=== PATIENT | male | born 1945 | race Caucasian/White ===

== ENCOUNTER 2016-11-04 11:30 | Inpatient (IN) ==
[2016-11-04 11:37] LABS: MANUAL DIFF NEEDED? NO; URINE MICRO REVIEW NEEDED? NO; URINE SOURCE CLEAN CATCH
[2016-11-04 11:57] LABS: BASO% 0.3 % (0.0-0.8); EOS# 0.18 X1000 (0.0-0.7); EOS% 2.7 % (0.0-10.0); HEMATOCRIT 43.7 % (42.0-52.0); LYMPH# 1.76 X1000 (1.2-3.4); MCH 32.1 PG (27-31); MCHC 34.3 g/dL (33-37); MCV 93.6 FL (81-99); MONO# 0.52 X1000 (0.11-0.59); MONO% 7.7 % (1.7-9.3); MPV 9.9 FL (7.4-10.4); NEUT% 63.3 % (42.2-75.2); PLT 112 X1000 (130-400); RBC 4.67 XMIL (4.7-6.1)
[2016-11-04 12:06] LABS: INR 1.08; PROTIME 11.4 Seconds (9.2-11.7); PTT 28.9 Seconds (22.0-36.0)
[2016-11-04 12:23] LABS: BILIRUBIN URINE NEGATIVE (NEGATIVE); BLOOD URINE NEGATIVE (NEGATIVE); COLOR YELLOW; GLUCOSE URINE NEGATIVE (NEGATIVE); LEUKOCYTES URINE NEGATIVE (NEGATIVE); NITRITE URINE NEGATIVE (NEGATIVE); PH URINE 6.5; PROTEIN URINE NEGATIVE (NEGATIVE); SP GRAVITY URINE 1.022; TURBIDITY URINE CLEAR (CLEAR); UROBILINOGEN URINE 4 mg/dL (NORMAL)
[2016-11-04 12:24] LABS: UR EPITHELIAL CELLS <10 /HPF (<10); URINE BACTERIA NEGATIVE /HPF; URINE RBC <10 /HPF (<10); URINE WBC <10 /HPF (<10)
[2016-11-04 13:01] LABS: AGAP 12; BUN 11 mg/dL (8-22); CALCIUM 9.2 mg/dL (8.8-10.2); CHLORIDE 101 mmol/L (98-107); COSMO 280; POTASSIUM 4.2 mmol/L (3.5-5.1); SODIUM 140 mmol/L (136-145); TCO2 27 mmol/L (25-35)
--- NOTE | 2016-11-04 13:55 | EKG Report ---
Test Performed on : 11/04/2016 11:17:09 AM Test Reason : PAT Blood Pressure : / mmHG Vent. Rate : 083 BPM Atrial Rate : 083 BPM P-R Int : 204 ms QRS Dur : 074 ms QT Int : 408 ms P-R-T Axes : 050 -04 059 degrees QTc Int : 479 ms Sinus rhythm. with premature supraventricular complexes. Otherwise normal ECG When compared with ECG of 08-MAY-2014 10:35, premature supraventricular complexes. are now present Confirmed by Alec Zepeda DO ([id number]) on 11/07/2016 8:00:35 PM
[2016-11-11] MEDS ORDERED: KEFZOL 2 GM/D5W 2 GM/50 ML IVPB ONE (06:46)
[2016-11-11] MEDS ORDERED: LR 1,000 ML ONE (06:46)
[2016-11-11] MEDS ORDERED: PEPCID ONE (06:46)
[2016-11-11] MEDS ORDERED: REGLAN ONE (06:46)
[2016-11-11] MEDS ORDERED: FENTANYL ONE (06:55)
[2016-11-11] MEDS ORDERED: XYLOCAINE-MPF 2% ONE (06:55)
[2016-11-11] MEDS ORDERED: DIPRIVAN 1% ONE (06:55)
[2016-11-11] MEDS ORDERED: COLACE ONE (06:59)
[2016-11-11] MEDS ORDERED: LYRICA ONE (06:59)
[2016-11-11] MEDS ORDERED: QUELICIN (DOSE) ONE (07:00)
[2016-11-11] MEDS ORDERED: STERILE WATER INJ. ONE (07:02)
[2016-11-11] MEDS ORDERED: NORCURON ONE (07:02)
[2016-11-11] MEDS ORDERED: VERSED ONE ×2 (07:42→08:14)
[2016-11-11] MEDS ORDERED: NAROPIN 0.5% ONE (07:42)
[2016-11-11] MEDS ORDERED: SENSORCAINE 0.5%-EPI 1:200,000 ONE (07:44)
[2016-11-11] MEDS ORDERED: TORADOL ONE (07:44)
[2016-11-11] MEDS ORDERED: DURAMORPH ONE (07:44)
[2016-11-11] MEDS ORDERED: NEOSPORIN G.U. IRRIGANT ONE (07:45)
[2016-11-11] MEDS ORDERED: CYKLOKAPRON 1,000 MG/NS 1,000 MG/100 ML IVPB ONE (07:45)
[2016-11-11] MEDS ORDERED: SODIUM CHLORIDE 0.9% ONE (07:45)
[2016-11-11] MEDS ORDERED: EXPAREL 1.3% ONE (07:45)
[2016-11-11 09:39] LABS: URINE MICRO REVIEW NEEDED? NO; URINE SOURCE CATH
[2016-11-11 09:50] LABS: BILIRUBIN URINE NEGATIVE (NEGATIVE); BLOOD URINE NEGATIVE (NEGATIVE); COLOR YELLOW; GLUCOSE URINE NEGATIVE (NEGATIVE); LEUKOCYTES URINE NEGATIVE (NEGATIVE); NITRITE URINE NEGATIVE (NEGATIVE); PH URINE 5.5; PROTEIN URINE NEGATIVE (NEGATIVE); SP GRAVITY URINE 1.026; TURBIDITY URINE CLEAR (CLEAR); UROBILINOGEN URINE 2 mg/dL (NORMAL)
[2016-11-11 09:51] LABS: UR EPITHELIAL CELLS <10 /HPF (<10); URINE BACTERIA NEGATIVE /HPF; URINE RBC <10 /HPF (<10); URINE WBC <10 /HPF (<10)
[2016-11-11] MEDS ORDERED: OFIRMEV 1000 MG/ISOTONIC SOLN 1,000 MG/100 ML BOTTLE ONE (10:08)
--- NOTE | 2016-11-11 11:30 | OPERATIVE NOTE ---
PROCEDURE DATE: 11/11/2016 PREOPERATIVE DIAGNOSIS: Left degenerative glenohumeral arthritis with chronic rotator cuff tear. POSTOPERATIVE DIAGNOSIS: Left degenerative glenohumeral arthritis with chronic rotator cuff tear. PROCEDURE: Left reverse shoulder arthroplasty with DePuy Delta XTEND size 14 press-fit stem, a 42, +3 humeral cup, 42 Eccentric Glenosphere, and a standard Metaglene. SURGEON: Jovan Man MD. PARTS RUNNER: LINA Garrido. SECOND PRINTED CIRCUIT BOARD PREASSEMBLER: Rico Gayle RN. ANESTHESIA: General. IV FLUIDS: 1500 mL lactated Ringer's. ESTIMATED BLOOD LOSS: 100 mL. COMPLICATIONS: None. INDICATION: The patient is a pleasant, 71-year-old male with a chronic history of worsening pain and discomfort of his left shoulder. Continued pain and discomfort despite appropriate nonoperative treatment. X-rays and MRI findings revealed left degenerative glenohumeral arthritis with a chronic rotator cuff tear. Recommendation to proceed with left reverse shoulder arthroplasty was offered. The risks and benefits of surgery were explained including the risks of anesthesia, , bleeding, infection, failure to relieve pain, postoperative stiffness, nerve injury, blood clots, and other imponderables. All questions were answered. The patient and family wished to proceed with surgery. DETAILS OF OPERATION: The patient was taken to the operating room and placed supine on the operating table. Once adequate anesthesia was obtained, the patient was placed in a semi-[place] beach-chair position. The left shoulder was subsequently prepped and draped in the usual sterile fashion. A standard deltopectoral incision was made with a skin knife. Medial and lateral skin envelopes were developed. Hemostasis was obtained using electrocautery. The clavipectoral fascia was then elevated and Samuel retractor was placed. The clavipectoral fascia was then elevated as well as the conjoint tendon. Attention was turned to the subscapularis tendon where a stay suture was placed. Approximately 1 cm medial to its insertion, release of the subscapularis tendon was then performed. The head was then dislocated anteriorly. A starting reamer was then passed superiorly. The starting reamer was then passed. Sequential reaming was then conducted to a size 14. Intramedullary guide was then placed in position. The humeral head was then resected. A protective disk was then placed. Attention was then turned to the glenoid. Circumferential dissection was then performed. A guide was then placed with the guide pin placed in the glenoid. Reaming was then conducted. The central hole was then dilated. The wound was copiously irrigated with antibiotic pulsatile lavage. A standard Metaglene was then impacted in position. Two locking screws were then placed and two nonlocking screws. It had good purchase. The wound was copiously irrigated once again. This was followed by a 42 Eccentric Glenosphere with the eccentricity placed inferiorly. Attention was then turned to the proximal humerus where an intramedullary guide was placed in position. The proximal humerus was then reamed. Copious irrigation was then performed with antibiotic pulsatile lavage. A size 14 Delta XTEND press-fit stem was then impacted in position with some autologous bone graft. It had good fit. Trial cup was then placed. A 42, +3 cup had excellent stability and range of motion. The trial cup was removed. The wound was copiously irrigated once again. This was followed by a 42, +3 humeral cup impacted on the stem. The shoulder was reduced, carried through a range of motion, and had good range of motion. It was carried through range of motion once again. Exparel was placed in the deep soft tissue. The wound was copiously irrigated. Then #2 FiberWire was used to repair the subscapularis tendon. It appeared to have good repair. This was followed by Exparel that was then placed in the subcutaneous tissue, followed by 2-0 Vicryl, and a running 2-0 Prolene. Benzoin and Steri-Strips were applied. Adaptic, sterile 4 x 4s, ABD pad, and tape were applied to the left shoulder, followed by a shoulder immobilizer. All counts were correct. Patient tolerated the procedure well and was transferred to the recovery room in stable condition. cc: Jovan Man MD
--- NOTE | 2016-11-11 11:44 | Diag Imaging Result Doc PS360 ---
EXAM: SHOULDER 1 VIEW LEFT HISTORY: L TSA TECHNIQUE: AP portable upright left shoulder one view COMMENT: There is an apparent shoulder prosthesis. This is only one view. There is no definite evidence of fracture or other acute abnormality. IMPRESSION: Postsurgical change. Electronically signed by Ang Kamara 11/11/2016 11:42 AM
[2016-11-11] MEDS ORDERED: ZOFRAN IV PRN (14:15)
[2016-11-11] MEDS ORDERED: ZOFRAN PO PRN (14:15)
[2016-11-11] MEDS ORDERED: OXY IR PO PRN (14:15)
[2016-11-11] MEDS ORDERED: MILK OF MAGNESIA PO PRN (14:15)
[2016-11-11] MEDS ORDERED: MORPHINE IV PRN (14:15)
[2016-11-11] MEDS ORDERED: CYKLOKAPRON 1,000 MG in NS 100 ML IV ONE (15:00)
[2016-11-11] MEDS: KEFZOL 1 GM/D5W 1 GM/50 ML IVPB IV SCH (17:49)
[2016-11-11] MEDS: TYLENOL PO SCH ×2 (17:49→21:21)
[2016-11-11] MEDS ORDERED: NORCO-10 PO PRN (20:38)
[2016-11-11] MEDS: COLACE PO SCH (21:22)
[2016-11-12] MEDS: KEFZOL 1 GM/D5W 1 GM/50 ML IVPB IV SCH (00:27)
[2016-11-12] MEDS: TYLENOL PO SCH ×2 (00:27→05:39)
[2016-11-12] MEDS: NS 1,000 ML IV SCH ×2 (00:28→05:39)
[2016-11-12 06:52] LABS: HEMATOCRIT 34.6 % (42.0-52.0); HEMOGLOBIN 11.7 g/dL (14.0-18.0)
[2016-11-12 07:11] LABS: AGAP 11; BUN 15 mg/dL (8-22); CALCIUM 8.2 mg/dL (8.8-10.2); CHLORIDE 103 mmol/L (98-107); COSMO 276; POTASSIUM 4.3 mmol/L (3.5-5.1); SODIUM 137 mmol/L (136-145); TCO2 23 mmol/L (25-35)
--- NOTE | 2016-11-12 07:37 | PROGRESS NOTE ---
DATE: 11/12/2016 SUBJECTIVE: The patient is a pleasant 71-year-old male who is 1 day status post left reverse total shoulder arthroplasty. He is currently resting comfortably and has no complaints. PHYSICAL EXAMINATION: Patient's left upper extremity dressing is intact. His hemoglobin is 11.7, hematocrit 34.6. IMPRESSION: Postop day #1 status post left reverse total shoulder arthroplasty. PLAN: At this point, we will change his dressing, Hep-Lock his IV and discontinue his Daivs. We will plan on discharging home. Patient will proceed with outpatient physical therapy. cc: Jovan Man MD
[2016-11-12 08:53] VITALS: BP 107/62
[2016-11-12] MEDS ORDERED: PERIDEX MT SCH (09:00)
[2016-11-12] MEDS ORDERED: PEPCID PO SCH (09:00)
[2016-11-12] MEDS: COLACE PO SCH (09:02)
== END 2016-11-12 10:37 | disposition home or self-care (01) ==
LOC: SURHOLD 11-11 02:43 → 4N 11-11 12:30
PROVIDERS: ADMIT Orthopaedic Surgery Adult Reconstructive Orthopaedic Surgery; ATTEND Orthopaedic Surgery Adult Reconstructive Orthopaedic Surgery

== ENCOUNTER 2018-09-19 10:16 | Inpatient (IN) ==
[2018-09-19 12:11] LABS: BASO# 0.02 X1000 (0.0-0.2); BASO% 0.3 % (0.0-0.8); EOS# 0.11 X1000 (0.0-0.7); EOS% 1.6 % (0.0-10.0); HEMOGLOBIN 14.2 g/dL (14.0-18.0); IMM GRAN# 0.01 X1000 (0.0-0.04); IMM GRAN% 0.1 % (0.0-0.5); LYMPH# 1.92 X1000 (1.2-3.4); LYMPH% 28.5 % (20.5-51.1); MCH 31.8 PG (27-31); MCHC 34.6 g/dL (33-37); MCV 91.7 FL (81-99); MONO# 0.65 X1000 (0.11-0.59); MONO% 9.6 % (1.7-9.3); MPV 9.6 FL (7.4-10.4); NEUT# 4.03 X1000 (1.4-6.5); NEUT% 59.9 % (42.2-75.2); PLT 128 X1000 (130-400); RBC 4.47 XMIL (4.7-6.1); RDW 12.5 % (11.5-14.5); WBC 6.74 X1000 (4.8-10.8)
[2018-09-19] MEDS ORDERED: LOVENOX SUBQ ONE (12:15)
[2018-09-19 12:49] LABS: AGAP 10; ALBUMIN 3.8 g/dL (3.5-5.0); ALKALINE PHOSPHATASE 119 U/L (32-122); BUN 7 mg/dL (8-22); CHLORIDE 104 mmol/L (98-107); COSMO 276; CREATININE 0.6 mg/dL (0.7-1.2); ESTIMATED GFR > 60; GLUCOSE 78 mg/dL (70-104); GOT 31 U/L (10-34); GPT 27 U/L (10-44); POTASSIUM 3.9 mmol/L (3.5-5.1); SODIUM 140 mmol/L (136-145); TCO2 26 mmol/L (25-35)
[2018-09-19 13:03] LABS: PTT 36.4 Seconds (22.3-41.8)
[2018-09-19 13:06] LABS: INR 1.23; PROTIME 16.1 Seconds (11.0-16.0)
--- NOTE | 2018-09-19 15:48 | Diag Imaging Result Doc PS360 ---
CT EXT UPPER RIGHT W/CONT - 09/19/2018 INDICATION: recent surgery, r edness, edema TECHNIQUE: CT right shoulder with intravenous contrast COMPARISON: None FINDINGS: There is surgical absence or erosion of the acromion. The distal clavicle appears grossly intact. There is some hypertrophic spurring at the distal clavicle. There is some circumscribed low-density fluid in the acromion resection bed with a tiny amount of gas. This measures 17 x 38 mm in AP and lateral dimensions. There is an area of surgical resection or erosion at the superior, anterior articular surface of the humeral head. This covers an area of about 12 x 18.5 mm in AP and lateral dimensions. Alignment is anatomic. IMPRESSION: 1. Indeterminate defect of the acromion and a small portion of the superior anterior humeral head. These may reflect surgical changes or erosion. Correlate clinically. 2. Small area of contained fluid in the acromion bed. Tiny amount of gas. Again, correlate with the orthopedic surgery. Electronically signed by Eloy Ngo 09/19/2018 3:46 PM
[2018-09-19] MEDS ORDERED: VANCOMYCIN IV PER PHARMACY MISC SCH (17:30)
--- NOTE | 2018-09-19 17:56 | HISTORY AND PHYSICAL ---
CHIEF COMPLAINT: I have a blood clot in my left leg. HISTORY OF PRESENT ILLNESS: This is a 72-year-old gentleman with a history of recent right shoulder surgery, hypertension, not currently on medication, prostate cancer status post resection, who presents to the emergency room as a direct admit after having been found to have a left lower extremity DVT. He stated that it was "just behind my kneecap." The patient states that he had been sedentary over the last 2 to 3 weeks since surgery spending most of his time sitting in a recliner. He denies any prior DVT, any family history of clots. PAST MEDICAL HISTORY: 1. Hypertension currently on no medication. 2. Prostate cancer status post TURP. 3. Arthritis. PAST SURGICAL HISTORY: 1. Prostatectomy. 2. Knee replacement. SOCIAL HISTORY: He denies alcohol, tobacco, or illicit drug use. He is . ALLERGIES: Sulfa which has unknown reaction. HOME MEDICATIONS: A list will be obtained by the nursing staff and once verified will be restarted as appropriate. REVIEW OF SYSTEMS: Discussed with patient with pertinent positives stated in HPI. He denied any syncope, dizziness, chest pain, palpitations, shortness of breath, cough, fever, chills, any night sweats, recent weight loss or weight gain, any nausea, vomiting, diarrhea, constipation, black or bloody vomitus or stools, any hematuria, dysuria, frequency, urgency. PHYSICAL EXAMINATION: GENERAL: This is a 72-year-old gentleman who is sitting up in the bed on the medical-surgical floor in no distress. VITAL SIGNS: Blood pressure is 146/60 with heart rate of 80, respirations are 18, temperature is 98.2 degrees with room air saturations 98%. HEENT: Pupils equal, round, react to light. EOMs are intact. Sclerae are anicteric. Head is normocephalic, atraumatic. Mucous membranes are moist. NECK: Supple. Trachea midline. CARDIOVASCULAR: Regular rate and rhythm. S1 and S2 appreciated. He has no lower extremity edema. Peripheral pulses are palpable x4 extremities. Right calf is nontender. Left knee and calf are tender with walking. PULMONARY: Breath sounds are clear. No increased work of breathing noted. Chest rise, fall symmetric respiration. Chest wall is nontender to palpation. GASTROINTESTINAL: Soft, nontender, nondistended with bowel sounds in all 4 quadrants. GENITOURINARY: He has no CVA. No suprapubic tenderness. NEUROLOGIC: He is alert, oriented x3. SKIN: Warm and dry. ASSESSMENT AND PLAN: 1. Left lower extremity deep vein thrombosis. Will give Lovenox 1 mg/kg. Will order hyper coag profile. 2. History of hypertension currently on no medications aware. 3. Edema and redness to right shoulder, recent surgery. We will obtain a CT with contrast as the patient states this has been red and swollen for about 2 weeks. He stated he was evaluated by Dr. Man last and the redness and swelling have increased. We will consult Dr. Man. 4. Will obtain blood cultures and give vancomycin for antibiotic coverage at present. Further treatments pending hospital course. Dictated by YINKA Senior for Branden Bullock MD cc: YINKA Senior MD
[2018-09-19] MEDS ORDERED: VANCOMYCIN 1,900 MG in NS 500 ML IV ONE (18:00)
--- NOTE | 2018-09-19 19:21 | ORTHOPAEDICS CONSULTATION ---
DATE: 09/19/2018 REASON FOR CONSULTATION: Right shoulder redness status post right rotator cuff arthroscopy and rotator cuff repair. HISTORY OF PRESENT ILLNESS: Mr. Pickering is a 72-year-old male, who presented to the [place] emergency room after leg pain and swelling. He stated, he began noticing an increase in swelling and pain to the left calf and it continued to progress. So he came to the [place] emergency room where an ultrasound showed a DVT in the left leg. He was admitted for treatment of that DVT. They started him on twice a day Lovenox. After his admission, it was noted that he had some erythema to 1 of the arthroscopy incisions on the right shoulder. He mentions that he saw Dr. Man in the office this past . There was some erythema at that time and Dr. Man placed him on antibiotic. The patient was not sure of the antibiotic name. His shoulder arthroscope was about 6 weeks ago. He stated that he had done well since then. He does admit he was not very mobile after surgery. Orthopedics has been consulted for management of the right shoulder. PAST SURGICAL HISTORY: Recent right shoulder arthroscopy with rotator cuff repair. FAMILY HISTORY: Noncontributory. ALLERGIES: Sulfa drugs. CURRENT MEDICATIONS: Refer to the chart. REVIEW OF SYSTEMS: A 10-point review of systems was completed and negative except what was mentioned above in the HPI. PHYSICAL EXAM: General: Mr. Pickering is a 72-year-old male in no acute distress. Neurological: He is alert and oriented x3. HEENT: Head is normocephalic and atraumatic. Pupils are equal, round, reactive to light. Cardiovascular: Regular rate and rhythm. Pulmonary: Breathing is even and unlabored. Abdomen: Appears nondistended. Right upper Extremity Exam: All of his arthroscopy holes have closed up well. There is a little bit of erythema on the most anterior incision. There was not a palpable mass or fluid area. There was no drainage. There was no wound. He has a 2+ radial pulse. He had good sensation to the hands and his hand intrinsics were all intact. He did not have tenderness to palpation. He was able to do some limited range of motion related to his recent rotator cuff repair. IMAGING: A CT was done of the right shoulder that showed a very small contained area fluid in the acromion bed. There were also some postsurgical changes. LABORATORY DATA: His white count 6.74. Hemoglobin and hematocrit is 14.2 and 41. Platelet count is 128,000. His INR is 1.23. ASSESSMENT: Status post right shoulder arthroscopy with rotator cuff repair. PLAN: For now we are going to continue Mr. Pickering's oral antibiotics. The CT did show a small fluid collection to the acromion bed. We will continue his oral antibiotics and see if things continue to improve. He can continue with his physical therapy. He is still passive range of motion only. We do agree with the full-dose Lovenox for the deep vein thrombosis. We will continue to monitor that shoulder. If you have any questions or concerns, please call Dr. Man. Dictated by YINKA Garcia for Jovan Man MD cc: YINKA Garcia MD Gregory S. Cheatham, MD [facility] HOSPITALAnjel
[2018-09-19] MEDS: NORCO-7.5 PO PRN (21:18)
[2018-09-19] MEDS: RESTORIL PO SCH (21:18)
--- NOTE | 2018-09-19 23:29 | HISTORY AND PHYSICAL ---
ADDENDUM: Patient seen and examined by myself. Full note dictated and discussed with nurse practitioner. Patient presented to the hospital after being seen outpatient office noting that he has DVT in his left lower extremity. Also has edema and redness to his right shoulder where he has recently had surgery. We will CT his shoulder, place him on Lovenox for now for his DVT and we will follow. cc: Branden Bullock MD
[2018-09-20] MEDS: NORCO-7.5 PO PRN ×2 (02:47→18:21)
--- NOTE | 2018-09-20 07:50 | ORTHOPAEDICS PROGRESS NOTE ---
DATE: 09/20/2018 SUBJECTIVE: The patient is a 72-year-old male who is approximately 6 weeks status arthroscopic rotator cuff repair of his right shoulder. The patient and presented to the office last week with some local erythema on the superior aspect of the shoulder. There was no evidence of drainage and no palpable abnormality. He had good range of motion. He was placed on antibiotics. Patient presented to the emergency room yesterday with some increased pain and discomfort and swelling in his left calf. He underwent evaluation and ruled in DVT. He was admitted to the hospital and placed on Lovenox. Given the patient's continued erythema in his right shoulder, a CT scan was obtained and revealed some postsurgical changes, as well as an area of collection, some low- density fluid in the acromial bed measuring 17 x 38 mm. PHYSICAL EXAMINATION: On physical exam this morning, his right shoulder has relative good passive range of motion. Continues with a local erythema on the superior aspect of the shoulder. There is no significant tenderness to palpation. There is no fluctuance. The remaining incisions look good. LABORATORY DATA: His WBC is 6.74, his hemoglobin was 14.2, hematocrit is 41, and platelets 128,000. The patient is afebrile. IMPRESSION: 1. Deep vein thrombosis of left lower extremity. 2. Status post arthroscopic repair of right shoulder with erythema superiorly. PLAN: At this point, after discussion with the patient and reviewing the CT scan and his continued local erythema and the findings of CT, I did recommend proceeding with an aspiration to rule out occult infection. Under sterile technique, approximately 1 mL of fluid was aspirated from the subacromial space just anterior inferior to the acromion. The fluid was yellowish. Approximately 1 mL of fluid was aspirated. We will obtain Gram stain and culture. Approximately 1 mL of yellowish turbid fluid was aspirated. We will obtain Gram stain and cultures to rule out occult infection. cc: MD Branden Monteiro MD
[2018-09-20] MEDS: ELIQUIS PO SCH ×2 (11:22→20:40)
[2018-09-20] MEDS: KEFLEX PO SCH ×3 (11:22→18:12)
[2018-09-20] MEDS ORDERED: VANCOMYCIN 1,650 MG in NS 250 ML IV SCH (18:00)
[2018-09-20] MEDS: RESTORIL PO SCH (20:40)
[2018-09-20] MEDS ORDERED: TUMS EXTRA STRENGTH PO PRN (20:41)
--- NOTE | 2018-09-21 00:37 | PROGRESS NOTE ---
DATE: 09/20/2018 SUBJECTIVE: Patient notes he is feeling better. Still having swelling in his right shoulder. Denies any chest pain. PHYSICAL EXAMINATION: Vital Signs: Reviewed. He is awake, alert. He is in no distress. HEENT: Normocephalic. Neck: Supple. Cardiovascular: Regular rate. No murmurs. Chest: Clear, nonlabored. Abdomen: Soft, nondistended. Extremities: Moves all extremities, although still has some pain in his left popliteal fossa area. ASSESSMENT: 1. Deep venous thrombosis. 2. Swelling of his right shoulder of undetermined significance. Ortho is on board. He has recently had surgery. 3. Hypertension. 4. History of prostate cancer. PLAN: We will continue patient in the hospital. Continue antibiotics until cultures are negative. Continue Lovenox until after the injection, and then consider switching to Xarelto or Eliquis. cc: Branden Bullock MD
[2018-09-21] MEDS: NORCO-7.5 PO PRN (01:26)
[2018-09-21] MEDS: KEFLEX PO SCH ×2 (09:24→13:05)
[2018-09-21 13:07] VITALS: BP 136/63
--- NOTE | 2018-09-22 06:15 | DISCHARGE SUMMARY ---
ADMISSION DATE: 09/19/2018 DISCHARGE DATE: 09/21/2018 DIAGNOSES: 1. Deep vein thrombosis left lower extremity. 2. Hypertension. 3. Swelling of right shoulder of undetermined significance, 6 weeks status post arthroscopic rotator cuff repair. CONSULTATIONS: Dr. Lachelle Man. DIAGNOSTICS: 1. CT right upper extremity reveals indeterminate defect of the acromion and a small portion of the superior anterior humeral head. These may reflect surgical changes or erosion. Small area of contained fluid in the acromion bed covers an area of about 12 x 18.5 mm. 2. Circumscribed low-density fluid in the chromium resection bed with a tiny amount of gas measuring 17 x 38 mm in AP and lateral dimension. MICROBIOLOGY: 1. Blood cultures x2 revealed no growth after 48 hours. 2. Abscess culture right shoulder revealed no growth. 3. Gram stain right shoulder revealed 4+ white blood cells with no bacteria seen both are from shoulder aspiration. HOSPITAL COURSE: Mr. Pickering presented as a direct admit after having been found to have a left lower extremity DVT on outpatient testing for complaints of posterior left knee pain. Hyper coag panel was drawn. He was initially placed on Lovenox, and we have since started Eliquis. Eliquis affordability was confirmed prior to discharge. The patient is status post right rotator cuff arthroscopic and rotator cuff repair. On admission, he was very concerned about redness to his right shoulder area. He and the stated that they had been evaluated by Dr. Man the week prior. At that time, it was felt that he did not have any infection. They feel the redness has increased A CT of the right shoulder was obtained. Dr. Man was consulted. He subsequently aspirated approximately 1 mL of fluid from this area. Thankfully, Gram stain and culture were negative, and he is ready to be discharged. DISCHARGE VITAL SIGNS: Blood pressure is 136/63 with a heart rate of 80, respirations 14, temperature is 98.7 degrees with O2 saturation 97 to 98% on room air. DISCHARGE PHYSICAL EXAMINATION: Cardiovascular: Regular rate and rhythm. S1 and S2 appreciated. Calves are nontender bilateral with peripheral pulses palpable x4 extremities. He has no lower extremity edema. Peripheral pulses are palpable x4 extremities. Pulmonary: Breath sounds are clear. No increased work of breathing noted. Chest rises and falls symmetric with respiration. Gastrointestinal: Abdomen is soft, nontender, and nondistended with bowel sounds in all 4 quadrants. : He has no CVA or suprapubic tenderness. Neurologic: He is alert and oriented x3. Skin: Warm and dry. He does have an area of redness to his shoulder that has been present over the last 2 to 3 weeks. This was evaluated by Dr. Man. DISCHARGE MEDICATIONS: 1. Eliquis 10 mg b.i.d. for 7 days, then 5 mg b.i.d. 2. Keflex 500 mg p.o. t.i.d. 3. [place] 7.5 q.6 hours p.r.n. 4. Restoril 30 mg p.o. at bedtime. FOLLOW-UP: 1. Dr. Lachelle Man. Appointment will be scheduled by the nursing staff prior to discharge. 2. Dr. Ashwin Alaniz. Appointment will be scheduled in the next 6 weeks to discuss the results of his hypercoagulable workup. 3. Dr. Jovan Wells his primary care for provider. He needs to call him today or tomorrow, and update on events and follow up as recommended. He has been instructed to return to the ER or call to be seen sooner for any syncope, dizziness, chest pain, palpitations, any shortness of breath, cough, fever, chills, temperature greater than 101, or any increasing redness, swelling to right shoulder area, any new drainage, purulent drainage, chest pain, palpitations, nausea, vomiting, diarrhea, constipation, any black or bloody vomitus or stools, any bleeding gums, nose bleeds, bruising, or for any questions or concerns that he may have. He is being discharged home in stable condition with family members. TIME SPENT: This is a greater than 30 minute discharge. Dictated by YINKA Senior for Branden Bullock MD cc: YINKA Senior MD [facility]
--- NOTE | 2018-09-22 07:26 | DISCHARGE SUMMARY ---
ADMISSION DATE: 09/19/2018 DISCHARGE DATE: 09/21/2018 SUBJECTIVE: Patient seen and examined. No current complaints. Still having some swelling in his right shoulder, but improved. Denies any fevers, chills. Denies chest pain. DISPOSITION: The patient will be discharged home on antibiotics, Keflex. Will continue treatment of his DVT with Eliquis, and will follow up outpatient with Orthopedics regarding his shoulder. TIME SPENT: Greater than 30 minutes were spent in total care. cc: Branden Bullock MD
== END 2018-09-21 14:20 | disposition home or self-care (01) | DRG 301 ==
LOC: P.DIRADM → OBSVTOIN 10:16 → P.MEDSURG 10:33
PROVIDERS: ATTEND Family Medicine